=== PATIENT | male | born 1965 | race Caucasian/White ===

== ENCOUNTER 2019-10-15 12:19 | Emergency (ER) | payer MEDICARE ==
[~2019-10-15] VITALS: Ht 177.8 cm; Wt 65.0 kg
[~2019-10-15 12:19] MED LIST: FLEXERIL10 MG PO; LORTAB 5/500 501 TAB PO; LORTAB 7.5/5001 TAB PO; NO HOME MEDICATIONS
[2019-10-15 12:46] VITALS: BP 122/79; TEMP 98
[2019-10-15 13:20] LABS: BASO % 0.4 % (0.0-2.0); EOS # 0.1 (0.0-0.7); EOS % 1.5 % (0-4.0); GRAN # 4.5 (1.4-6.5); GRAN % 60.3 % (42.2-75.2); HEMATOCRIT 41.1 % (42.0-52.0); HEMOGLOBIN 13.7 g/dl (13.5-18.0); LYMPH # 2.3 (1.2-3.4); LYMPH % 31.1 % (20.0-51.0); MEAN CELL VOLUME 92 fl (80.0-100.0); MEAN CORPUSCULAR HEMOGLOBIN 31 pg (27.0-31.0); MEAN CORPUSCULAR HGB CONC 33 g/dl (33.0-37.0); MEAN PLATELET VOLUME 9.5 fl (7.4-10.4); MONO # 0.5 (0.1-0.6); MONO % 6.6 % (1.7-9.3); PLATELET COUNT 244 K/mm3 (130-400); RED BLOOD COUNT 4.48 M/mm3 (4.20-5.60); REDCELL DISTRIBUTION WIDTH-CV 12.5 % (11.5-14.5)
[2019-10-15 13:30] LABS: ALBUMIN 4.8 gm/dL (3.5-5.0); BILIRUBIN,TOTAL 1.1 mg/dL (0.0-1.0); CALCIUM 9.5 mg/dL (8.4-10.2); CREATININE, serum 0.86 (0.66-1.25); POTASSIUM 4.3 mmol/L (3.4-5.0); TOTAL PROTEIN 7.9 gm/dL (6.4-8.2)
[2019-10-15 14:19] LABS: MAGNESIUM 1.9 mg/dL (1.6-2.3)
[2019-10-15 14:22] LABS: C-REACTIVE PROTEIN < 0.5 mg/dL (0.0-0.9)
[2019-10-15 14:29] LABS: TROPONIN-I < 0.012 ng/mL (0.000-0.035)
[2019-10-15 15:03] LABS: COLLECTION METHOD CLEAN CATCH
[2019-10-15 15:13] LABS: MUCOUS Present /lpf; PH 5 (5-8); SQUAMOUS EPITHELIAL None Seen /hpf; URINE APPEARANCE Clear; URINE BACTERIA None Seen /hpf; URINE BILIRUBIN Negative (NEGATIVE); URINE BLOOD 1+ (NEGATIVE); URINE COLOR Yellow; URINE GLUCOSE Negative (NEGATIVE); URINE KETONE Negative (NEGATIVE); URINE LEUKOCYTE ESTERASE Negative (NEGATIVE); URINE NITRATE Negative (NEGATIVE); URINE PROTEIN(semi-quant) Negative (NEGATIVE); URINE RBC 0-2 /hpf; URINE UROBILINOGEN Negative (NEGATIVE)
[2019-10-15] MEDS ORDERED: NORCO 325 MG-51 TAB PO (16:10)
[2019-10-15] MEDS ORDERED: SKELAXIN 800MG800 MG PO (16:10)
[2019-10-15] MEDS ORDERED: ZOFRAN ODT4 MG PO (16:10)
[2019-10-15 19:00] VITALS: PULSE 86
== END 2019-10-15 16:45 | disposition home or self-care (01) ==
LOC: COL.ER 12:19
PROVIDERS: Emergency Medicine
DX: M25.552 Pain in left hip (principal); R10.32 Left lower quadrant pain; W19.XXXA Unspecified fall, initial encounter
CPT/HCPCS: J7030; Q9967

== ENCOUNTER 2020-03-02 06:14 | Day surgery (SDC) | payer MEDICARE ==
[2020-03-02] VITALS (9 sets, daily range): BP systolic 105–117; BP diastolic 65–77; PULSE 43–58; TEMP 97.5–97.7
[~2020-03-02] VITALS: Ht 172.7 cm; Wt 63.5 kg
[~2020-03-02 06:14] MED LIST changes: +NORCO 325 MG-51 TAB PO; +SKELAXIN 800MG800 MG PO; +ZOFRAN ODT4 MG PO
[2020-03-02] MEDS ORDERED: NORCO 325 MG-51 TAB PO (10:17)
[2020-03-02] MEDS ORDERED: MOTRIN 600600 MG/TAB PO (10:17)
--- NOTE | 2020-03-02 11:05 | NUR ---
Patient returns to room 7 per cart from PACU per cart accompanied by Trudi FLEMING and is awake and alert. IV fluids infusing. Temp 97.4 and room air sats 95%. Shukla set dressing dry on abdomen x3. Patient is drinking ice water and denies nausea. Siderails up x2 and call light in reach. Appointment Setter in room. Allowed to rest.
--- NOTE | 2020-03-02 11:20 | NUR ---
Room air sats 94%. Continues to sip on water and denies pain or nausea.
--- NOTE | 2020-03-02 11:35 | NUR ---
Eating toast and states that he is beginning to have increasing soreness.
--- NOTE | 2020-03-02 11:50 | NUR ---
Tolerated toast without nausea. Now rates pain at 8/10. Warm blanket on abdomen.
--- NOTE | 2020-03-02 11:55 | NUR ---
Medicated with [place] 5mg on tab for c/o pain.
--- NOTE | 2020-03-02 12:05 | NUR ---
Room air sats 96%. Resting with eyes closed when not disturbed.
--- NOTE | 2020-03-02 12:35 | NUR ---
States that the pain pill is helping and is more relaxed.
--- NOTE | 2020-03-02 12:50 | NUR ---
Assisted up to the bathroom and is able to void. Returns to the room and IV discontinued. Assisted with dressing.
--- NOTE | 2020-03-02 13:11 | NUR ---
Dismissal instructions given and voices understanding of these. Provided script for Attila and Ratna. Taken to the front door per wheelchair and assisted into car by this RN. Product Development Manager was here and assisted with all translating.
== END 2020-03-02 13:11 | disposition home or self-care (01) ==
LOC: SDCO 06:14
DX: K40.20 Bilateral inguinal hernia, without obstruction or gangrene, not specified as recurrent (principal); R31.21 Asymptomatic microscopic hematuria; H91.93 Unspecified hearing loss, bilateral; F17.210 Nicotine dependence, cigarettes, uncomplicated; F19.90 Other psychoactive substance use, unspecified, uncomplicated; Z80.52 Family history of malignant neoplasm of bladder; Z11.59 Encounter for screening for other viral diseases
CPT/HCPCS: C1781; J1100; J1885; J2250; J2405; J2704; J3010; J7120

== ENCOUNTER → 2021-02-03 | Outpatient (REF) ==
[~2021-02-03] MED LIST changes: +MOTRIN 600600 MG/TAB PO
== END ==
LOC: ZLAB.WCH 18:40
DX: Z01.89 Encounter for other specified special examinations (principal)